=== PATIENT | male | born 1955 | race Caucasian/White ===

== ENCOUNTER 2017-03-28 08:11 | Inpatient (IN) | payer BC ==
[~2017-03-28] VITALS: Ht 195.6 cm; Wt 99.8 kg
[2017-03-28 09:09] LABS: HEMOGLOBIN 13.4 gm/dl (14.0-17.5); RED BLOOD COUNT 4.72 M/UL (4.20-5.50); WHITE BLOOD COUNT 1.6 K/UL (4.5-11.0)
[2017-03-28 09:25] LABS: BUN/CREATININE RATIO 23 (0-10)
[2017-03-28] MEDS ORDERED: DICLOFENAC SODI75 MG PO (22:54)
[2017-03-28] MEDS ORDERED: VYTORIN 10-401 EACH PO (22:55)
[2017-03-28] MEDS ORDERED: ULORIC80 MG PO (22:56)
[2017-03-28] MEDS ORDERED: GLUCOSAMINE CH1 EACH PO (22:56)
[2017-03-28] MEDS ORDERED: COREG 3.125M3.125 MG PO (22:56)
[2017-03-28] MEDS ORDERED: INDOMETHACIN75 MG PO (22:57)
[2017-03-29 03:58] LABS: HEMOGLOBIN 12.8 gm/dl (14.0-17.5); RED BLOOD COUNT 4.54 M/UL (4.20-5.50)
[2017-03-29 04:02] LABS: WHITE BLOOD COUNT 1.5 K/UL (4.5-11.0)
[2017-03-29 04:12] LABS: BUN/CREATININE RATIO 17 (0-10)
[2017-03-30 04:58] LABS: HEMOGLOBIN 12.7 gm/dl (14.0-17.5); RED BLOOD COUNT 4.47 M/UL (4.20-5.50); WHITE BLOOD COUNT 5.6 K/UL (4.5-11.0)
[2017-03-30 04:59] LABS: BUN/CREATININE RATIO 19 (0-10)
[2017-03-31 05:28] LABS: HEMOGLOBIN 12.2 gm/dl (14.0-17.5); RED BLOOD COUNT 4.36 M/UL (4.20-5.50)
[2017-03-31 05:30] LABS: WHITE BLOOD COUNT 8.6 K/UL (4.5-11.0)
[2017-03-31 05:44] LABS: BUN/CREATININE RATIO 19 (0-10)
[2017-03-31] MEDS ORDERED: VOLTAREN EC 7575 MG PO (19:39)
[2017-03-31] MEDS ORDERED: ZANTAC 150 MG150 MG PO (19:40)
[2017-03-31] MEDS ORDERED: VIBRAMYCIN100 MG PO (19:40)
== END 2017-03-31 19:54 | disposition home or self-care (01) | DRG 872 ==
LOC: ER1 08:11 → MED SURG 4 15:55 → ZEROF 15:55 → MED SURG 4 21:58
PROVIDERS: Hospitalist; Internal Medicine Hematology & Oncology; Physician Assistant; Physician Assistant Medical; ADMIT Internal Medicine
DX: A41.9 Sepsis, unspecified organism (principal); B17.9 Acute viral hepatitis, unspecified; D61.818 Other pancytopenia; J98.11 Atelectasis; I10 Essential (primary) hypertension; E78.5 Hyperlipidemia, unspecified; M10.9 Gout, unspecified; M25.561 Pain in right knee; R16.1 Splenomegaly, not elsewhere classified; M19.90 Unspecified osteoarthritis, unspecified site; Z87.442 Personal history of urinary calculi; Z79.899 Other long term (current) drug therapy; Z82.49 Family history of ischemic heart disease and other diseases of the circulatory system; Z83.3 Family history of diabetes mellitus
CPT/HCPCS: 36415; 71020; 73564; 76705; 78227; 80048; 80053; 80061; 80074; 80076; 80202; 81001; 82150; 82550; 82553; 82607; 82747; 83605; 83615; 83690; 83735; 84484; 84550; 85025; 85384; 85610; 85730; 86039; 86140; 86403; 86618; 86644; 87040; 87086; 87390; 93005; 96374; 96375; 96376; 99285; A9537; G0378; J1442; J2270; J2405; J2550; J2805; J3370; J7030; J7050; J7070